=== PATIENT | male | born 1950 | race Caucasian/White ===

== ENCOUNTER 2023-02-05 07:54 | Day surgery (SDC) | payer MEDICARE ==
[2023-02-04 09:06] VITALS: BMI 23.5
[~2023-02-05 07:54] MED LIST: ALPRAZolam 0.25 MG TAB PO PRN; ALPRAZolam 0.5 MG TAB PO PRN; ASPIRIN 325 MG TAB PO PRN; SODIUM CHLORIDE 0.9% 1,000 ML in EMPTY BAG 1 BAG IV ONE
[2023-02-05 08:17] VITALS: RESP 16; TEMP 97.9
[2023-02-05] MEDS ORDERED: SODIUM CHLORIDE 0.9% 1,000 ML IV ONE (08:31)
[2023-02-05] MEDS ORDERED: MIDAZOLAM 2 MG/2 ML VIAL IV ONE (08:59)
[2023-02-05] MEDS: LIDOCAINE 1% INJ 10MG/ML (30 ML VIAL-PF) SQ ONE ×2 (08:59→09:15)
[2023-02-05] MEDS ORDERED: VERAPAMIL SYRINGE (5 MG/10 ML) INTRAARTER ONE (09:20)
[2023-02-05] MEDS ORDERED: NALOXONE 0.4 MG/ML 1 ML VIAL IVP PRN (09:34)
[2023-02-05] MEDS ORDERED: IOPAMIDOL-250 100ML BTL INTRAARTER ONE (09:38)
--- NOTE | 2023-02-05 10:03 | P.PCN ---
Date of Procedure: 02/05/23 Operative Findings: AN ABDOMINAL AORTOGRAM AND BILATERAL LOWER EXTREMITIES RUNOFF PERFORMING PHYSICIAN: Oskar Manzanares MD PROCEDURE PERFORMED: 1. An abdominal aortogram 2. Bilateral lower extremities runoff INDICATION: Bilateral lower exam it is intermittent claudication interfering with the patient daily activities. He underwent an arterial duplex study and that came in to be abnormal COMPLICATION: None LEVEL OF SEDATION: Moderate was sedation length of 40 minutes APPROACH: Right radial artery PROCEDURE DESCRIPTION: After obtaining informed consent and explaining the procedure benefits, risks, and complications, the patient was brought to the cardiac outside laborer. Attempting accessing the right and left common femoral arteries was unsuccessful. Finally I was able to access the right radial artery and placed 6-Gabonese sheath. Subse quently the patient was given 2 mg of verapamil intra-arterial and 3000 use of heparin intra-venous We did an abdominal aortogram and bilateral lower extremities runoff using 5- Gabonese pigtail catheter using a power injection. The catheter was initially placed at the level of the renal arteries, and it was pulled into above the bifurcation of the aorta into right and left common iliac arteries. The procedure was completed and there was no complications. SELECTIVE PERIPHERAL ANGIOGRAM: The abdominal aorta: The infrarenal aorta appears to have mild disease only then after that becomes mildly aneurysmal. The common iliac arteries: The right and left common iliac arteries appear to have mild disease only The external iliac arteries: Both external iliac arteries are occluded The internal iliac arteries: Both internal iliac arteries are patent and provides collateral to the femorals arteries bilaterally The common femoral arteries: Both femoral arteries are severely diseased Superficial femoral arteries: The right SFA appears to have severe disease distally. The left SFA has mild disease only Popliteal arteries: The right popliteal has mild disease only. 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
--- NOTE | 2023-02-05 10:12 | IR ---
EXAMINATION TYPE: IR angio abdominal w runoff DATE OF EXAM: 02/05/2023 COMPARISON: NONE HISTORY: Fluoroscopy time. Fluoroscopy was provided to the referring clinician.
[2023-02-05 14:20] VITALS: PULSE 70
[2023-02-05 14:24] VITALS: BP 156/74
[2023-02-05] MEDS ORDERED: METOPROLOL TARTRATE 12.5 MG TAB PO SCH (21:00)
[2023-02-06] MEDS ORDERED: ASPIRIN 81 MG PO SCH (09:00)
[2023-02-06] MEDS ORDERED: MULTIVITAMINS, THERA 1 EACH TAB PO SCH (09:00)
[2023-02-06] MEDS ORDERED: amLODIPine 5 MG TAB PO SCH (09:00)
[2023-02-06] MEDS ORDERED: ATORVASTATIN 40 MG TAB PO SCH (09:00)
[2023-02-06] MEDS ORDERED: CLOPIDOGREL 75 MG TAB PO SCH (09:00)
== END 2023-02-05 14:24 | disposition home or self-care (01) ==
LOC: CATHCVL 07:54
PROVIDERS: ATTEND Internal Medicine Interventional Cardiology
DX: I71.9 Aortic aneurysm of unspecified site, without rupture (principal); E78.2 Mixed hyperlipidemia; F17.210 Nicotine dependence, cigarettes, uncomplicated; Z82.49 Family history of ischemic heart disease and other diseases of the circulatory system; Z79.82 Long term (current) use of aspirin; Z79.899 Other long term (current) drug therapy
CPT/HCPCS: 36200; 75625; 75716; C1769 ×3; C1894; J2250; J2001; Q9966